=== PATIENT | female | born 1950 | race Caucasian/White ===

== ENCOUNTER → 2017-05-05 | Outpatient (CLI) | payer OTHER, BC ==
--- NOTE | 2017-05-05 15:03 | MAMMOGRAPHY REPORT ---
UNILATERAL RIGHT DIGITAL DIAGNOSTIC MAMMOGRAM TOMOSYNTHESIS AND TARGETED RIGHT ULTRASOUND: 05/05/2017 CLINICAL HISTORY: 66-year-old woman called back from screening mammography for possible architectural distortion in the right breast. TECHNIQUE: Spot compression right CC and MLO 2-D and tomosynthesis images were obtained. COMPARISON: Comparison is made to exams dated: 04/24/2017 mammogram, 04/23/2016 mammogram, 04/14/2015 mammogram, 04/13/2014 mammogram, 04/12/2013 mammogram, and 04/09/2012 mammogram - [facility]. BREAST COMPOSITION: The tissue of the right breast is heterogeneously dense, which may obscure small masses. FINDINGS: The additional spot compression tomosynthesis views of the right breast demonstrate a pers istent focal area of architectural distortion in the 11-11:30 right breast, 4 cm distal to the nipple . No other definite areas of distortion, obvious mass or suspicious calcifications are identified. Further evaluation with ultrasound was performed. Targeted ultrasound was performed in the upper outer quadrant of the right breast to assess for the m ammographic asymmetry. In the 11:00 axis, 2 cm from the nipple, there is an irregular taller than wi de hypoechoic solid mass with associated distortion, measuring 4.1 x 6.2 x 4.9 mm. This correlates w ell in shape and location as the mammographic distortion and is suspicious for malignancy. Definitiv e characterization with an ultrasound-guided core biopsy is recommended. Additional targeted ultrasound performed in the right axilla demonstrates a few morphologically good l lymph nodes without evidence of suspicious lymphadenopathy seen on ultrasound. IMPRESSION: ACR BI-RADS CATEGORY 4: SUSPICIOUS, TARGETED ULTRASOUND ACR BI-RADS CATEGORY 5: HIGHLY S UGGESTIVE OF MALIGNANCY 1. Ultrasound guided core biopsy is recommended for a hypoechoic shadowing mass with associated arch itectural distortion in the 11:00 right breast, 2 cm from the nipple, thought to correlate with the d istortion seen mammographically. 2. No suspicious right axillary adenopathy identified on targeted ultrasound. These results and recommendations were discussed with the patient and her at the time of the exam. She tentatively scheduled the biopsy prior to leaving our department. Approximately 10% of breast cancers are not detected with mammography. A negative mammographic report should not delay biopsy if a clinically suggestive mass is present. Katie Brown M.D. ay/:05/05/2017 12:21:23 Enologist: Marta FAGAN)([place]), [facility] letter sent: Abnormal 4/5 BI-RADS Code: ACR BI-RADS Category 4: Suspicious Ultrasound BI-RADS: ACR BI-RADS Category 5: Highly Suggestive Of Malignancy
== END | disposition home or self-care (01) ==
LOC: C.MAMM 10:21
PROVIDERS: ATTEND Nurse Practitioner
DX: N63.10 Unspecified lump in the right breast, unspecified quadrant (principal)

== ENCOUNTER → 2017-05-13 | Outpatient (CLI) | payer OTHER, BC ==
--- NOTE | 2017-05-13 10:34 | Discharge Instructions ---
Discharge Instructions Procedure Procedure Date: May 13, 2017. Reason for visit: Right Distortion. Discharge Discharge Date: May 13, 2017. Discharge Diagnosis: post right breast ultrasound guided core biopsy Instructions Activity Recommendations: Additional Limitations (see below) Return to School/Work: no limitations Recommended Home Diet: No Limitations Provider Instructions: ACTIVITY RECOMMENDATIONS: * No lifting, pushing, pulling or exercising the affected side for three days. RETURN TO SCHOOL/WORK: * You may return to work/school after the procedure, but do not perform any strenuous activities for 24 to 48 hours. MEDICATIONS: * Tylenol (two 325 mg) every four to six hours if needed for mild pain (if not allergic to Tylenol). DIET: * Resume previous diet. SPECIAL CARE INSTRUCTIONS: * Keep biopsy site dry for 24 hours. May shower after 24 hours, but do not soak (bathe) incision. * May remove Tegaderm (plastic patch) tomorrow AFTER showering. * Leave the steri-strips on for one week. Allow the steri-strips to fall off by themselves. If not off after one week, you may remove them. You may place a Bandaid crosswise over the strips, if desired. * Apply ice 10 minutes on and 10 minutes off as needed. * Wear a bra at bedtime to sleep more comfortably for 2-3 days. * Your referring physician should have the results after approximately 5 to 7 business days. * Call for unusual bleeding, fever, drainage, etc or if you have any questions call [phone] during normal business hours or after hours call Dr Brown, . FOLLOW UP VISIT: Follow-up with Referring Physician as scheduled. Thomas Hamilton Recommendations: Call your doctor if: * Temperature above 101 degrees * Pain not relieved by pain medicine ordered * There is increased drainage or redness from any incision * You have any unanswered questions or concerns. Your Doctors Instructions noted above were prepared by provider Katie Brown. Patient Signature Section: Patient Instructions Signature Page Lynnette Batista Patient (or Guardian) Signature/Date: I have read and understand the instructions given to me by my caregivers. Caregiver/RN/Doctor Signature/Date: The above-named patient and/or guardian has received patient instructions on this date. + Original Patient Signature Page (only) stays with chart. Please make copy for patient.
--- NOTE | 2017-05-20 09:33 | MAMMOGRAPHY REPORT ---
ULTRASOUND GUIDED BIOPSY RIGHT BREAST: 05/13/2017 CLINICAL HISTORY: Ill-defined hypoechoic shadowing mass with associated architectural distortion in t he 11:00 right breast. Patient presents for ultrasound-guided core biopsy. COMPARISON: Comparison is made to exams dated: 05/05/2017 mammogram, 05/05/2017 ultrasound, 7 mammogram, 04/23/2016 mammogram, 04/14/2015 mammogram, and 04/13/2014 mammogram - [facility]. PATIENT CONSENT: The procedure, risks and benefits were discussed with the patient and informed conse nt was obtained both verbally and in writing. Specific risks to this procedure include: bleeding, in fection, puncture of adjacent structure, nontarget biopsy, sampling error, pain, metal allergy and me dication reaction. PROCEDURE DESCRIPTION: A time out was performed and the right breast was agreed as the site of biopsy . The skin was prepped and draped in the usual sterile fashion. The ill-defined hypoechoic shadowing mass in the 11:00 right breast was chosen as the target for biopsy. Subcutaneous and intraparenchymal 1% buffered lidocaine, with and without epinephrine, was administered as local anesthesia. A skin in cision was made. Through the incision, 3 samples were taken with a 12 gauge Celero biopsy device. A ribbon shaped metallic marker was placed at the biopsy site. Hemostasis was achieved after manual com pression. The patient tolerated the procedure well and there was no immediate complication. [facility] department in an appropriately labeled container. Postprocedure right CC and ML tomosynthesis images were obtained. There is a new ribbon-shaped metal lic biopsy marker in the upper outer anterior right breast, at the site of the biopsied ill-defined h ypoechoic shadowing mass. The ribbon-shaped biopsy marker clip aligns with the architectural distort ion seen mammographically, confirming mammographic-sonographic correlation. No significant postbiops y hematoma is seen. IMPRESSION: ULTRASOUND GUIDED BIOPSY Status post ultrasound guided core biopsy of an ill-defined hypoechoic shadowing mass with associated architectural distortion in the 11:00 right breast, with biopsy marker clip placed at the site. The patient will receive notification of the biopsy results from her referring physician. Katie Brown M.D. ay/:05/13/2017 10:56:44 Upholstery Parts Sorter: Laura TANNER(R)(M), [facility]
--- NOTE | 2017-05-20 09:33 | MAMMOGRAPHY REPORT ---
UNILATERAL RIGHT DIGITAL DIAGNOSTIC MAMMOGRAM TOMOSYNTHESIS: 05/13/2017 CLINICAL HISTORY: Status post ultrasound-guided core biopsy of an ill-defined hypoechoic shadowing ma ss in the 11:00 right breast, thought to correlate with mammographic distortion. Please refer to the report from right breast ultrasound-guided core biopsy performed at the same time for full detail. IMPRESSION: POST PROCEDURE IMAGING FOR MARKER PLACEMENT Please refer to the report from right breast ultrasound-guided core biopsy performed at the same time for full detail. Approximately 10% of breast cancers are not detected with mammography. A negative mammographic report should not delay biopsy if a clinically suggestive mass is present. Kaite Brown M.D. ay/:05/13/2017 10:33:07 Jet Dyeing Machine Operator: Laura TANNER(Merna)([place]), [facility] BI-RADS Code: Post Procedure Imaging For Marker Placement
== END | disposition home or self-care (01) ==
LOC: C.MAMM 09:46
PROVIDERS: ATTEND Nurse Practitioner
DX: N64.9 Disorder of breast, unspecified (principal); C50.911 Malignant neoplasm of unspecified site of right female breast